=== PATIENT | male | born 1990 | race African-American/Black ===

== ENCOUNTER 2017-01-15 10:50 | Emergency (ER) | payer BC ==
[~2017-01-15] VITALS: Ht 180.3 cm; Wt 71.5 kg
[~2017-01-15 10:50] MED LIST: BACT2CRE TOP
[2017-01-15 10:52] VITALS: BP 132/104; PULSE 74; RESP 16; TEMP 98.8; O2SAT 99
[2017-01-15 11:04] VITALS: BP 155/93; PULSE 63; RESP 18; O2SAT 98
--- NOTE | 2017-01-15 11:25 | PD ---
HPI Chief Complaint: Fever Time Seen by Provider: 11:20 Travel History International Travel<30 days: No Contact w/Intl Traveler<30days: No Traveled to known affect area: No History of Present Illness HPI Patient presents with complaints of fever 2 days. Denies any chest pain shortness of breath urinary or bowel symptoms. Denies any nausea vomiting or diarrhea. Positive sick contacts. No new rashes. History of elevated blood pressure without diagnosis of hypertension. Positive smoker. Took Tylenol 2 hours ago. PFSH Past Medical History Medical History: Denies Significant Hx Diminished Hearing: No Immunizations Current: Yes Tetanus Vaccination: < 5 Years Influenza Vaccination: No Past Surgical History Surgical History: No Previous Surgery Social History Alcohol Use: No Tobacco Use: Yes (4 CIGS DAILY) Substance Use: No Allergies-Medications (Allergen,Severity, Reaction): Coded Allergies: No Known Allergies (Unverified , 01/15/17) Reported Meds & Prescriptions Reported Meds & Active Scripts Active No Active Prescriptions or Reported Medications Review of Systems General / Constitutional: Positive: Fever Eyes: No: Visual changes HENT: No: Headaches Cardiovascular: No: Chest Pain or Discomfort Respiratory: No: Shortness of Breath Gastrointestinal: No: Abdominal Pain Genitourinary: No: Dysuria Musculoskeletal: No: Pain Skin: No Rash Neurologic: No: Weakness Psychiatric: No: Depression Endocrine: No: Polydipsia Hematologic/Lymphatic: No: Easy Bruising Physical Exam Narrative GENERAL: Well-nourished, well-developed patient. SKIN: Focused skin assessment warm/dry. HEAD: Normocephalic. EYES: No scleral icterus. No injection or drainage. NECK: Supple, trachea midline. No JVD or lymphadenopathy. CARDIOVASCULAR: Regular rate and rhythm without murmurs, gallops, or rubs. RESPIRATORY: Breath sounds equal bilaterally. No accessory muscle use. GASTROINTESTINAL: Abdomen soft, non-tender, nondistended. MUSCULOSKELETAL: No cyanosis, or edema. BACK: Nontender without obvious deformity. No CVA tenderness. Data Data Last Documented VS Vital Signs Date Time Temp Pulse Resp B/P Pulse Ox O2 Delivery O2 Flow Rate FiO2 01/15/17 11:04 63 18 155/93 98 Room Air 01/15/17 10:52 98.8 Orders Complete Blood Count With Diff (01/15/17 11:20) Comprehensive Metabolic Panel (01/15/17 11:20) Urinalysis - C+S If Indicated (01/15/17 11:20) Chest, Single Ap (01/15/17 ) Acetaminophen (Tylenol) (01/15/17 11:30) Labs Laboratory Tests Test 01/15/17 11:25 White Blood Count 4.0 TH/MM3 Red Blood Count 5.23 MIL/MM3 Hemoglobin 15.2 GM/DL Hematocrit 46.9 % Mean Corpuscular Volume 89.6 FL Mean Corpuscular Hemoglobin 29.1 PG Mean Corpuscular Hemoglobin 32.4 % Concent Red Cell Distribution Width 12.3 % Platelet Count 127 TH/MM3 Mean Platelet Volume 9.0 FL Neutrophils (%) (Auto) 60.1 % Lymphocytes (%) (Auto) 28.9 % Monocytes (%) (Auto) 10.2 % Eosinophils (%) (Auto) 0.2 % Basophils (%) (Auto) 0.6 % Neutrophils # (Auto) 2.4 TH/MM3 Lymphocytes # (Auto) 1.2 TH/MM3 Monocytes # (Auto) 0.4 TH/MM3 Eosinophils # (Auto) 0.0 TH/MM3 Basophils # (Auto) 0.0 TH/MM3 CBC Comment DIFF FINAL Differential Comment Urine Collection Type CLEAN CATCH Urine Color YELLOW Urine Turbidity CLEAR Urine pH 6.0 Urine Specific [place] 1.028 Urine Protein TRACE mg/dL Urine Glucose (UA) NEG mg/dL Urine Ketones NEG mg/dL Urine Occult Blood NEG Urine Nitrite NEG Urine Bilirubin NEG Urine Leukocyte Esterase NEG Urine RBC 0-3 /hpf Urine Squamous Epithelial 0-5 /hpf Cells Urine Mucus FEW /lpf Microscopic Urinalysis Comment CULT NOT INDICATED Urine Collection Time 11:25 Sodium Level 140 MEQ/L Potassium Level 3.7 MEQ/L Chloride Level 108 MEQ/L Carbon Dioxide Level 23.6 MEQ/L Anion Gap 8 MEQ/L Blood Urea Nitrogen 12 MG/DL Creatinine 1.10 MG/DL Estimat Glomerular Filtration 100 ML/MIN Rate Random Glucose 89 MG/DL Calcium Level 8.8 MG/DL Total Bilirubin 0.3 MG/DL Aspartate Amino Transf 17 U/L (AST/SGOT) Alanine Aminotransferase 18 U/L (ALT/SGPT) Alkaline Phosphatase 41 U/L Total Protein 8.0 GM/DL Albumin 3.9 GM/DL [facility] Medical Decision Making Medical Screen Exam Complete: Yes Emergency Medical Condition: Yes Differential Diagnosis Viral illness, fever unknown origin, respiratory infection, urinary infection Narrative Course Assessment and plan discussed with and daughter at bedside. Chest x-ray showed no acute cardiopulmonary process. Labs reviewed Diagnosis Primary Impression: Fever, unknown origin Patient Instructions: General Instructions Additional Instructions: Encouraged Motrin or Tylenol. Encouraged rest and fluids. Follow-up with PCP if symptoms do not improve. Return to emergency room with any change in symptoms. Med/Other Pt SpecificInfo: No Meds Exist/No RX given Scripts No Active Prescriptions or Reported Meds Disposition: 01 DISCHARGE HOME Condition: Good Andrea Lanza MD Jan 15, 2017 11:24
[2017-01-15] MEDS ORDERED: ACETAMINOPHEN 325 MG TAB PO ONE (11:30)
[2017-01-15 11:37] LABS: AUTOMATED NEUTROPHIL # 2.4 TH/MM3 (1.8-7.7); BASOPHIL % 0.6 % (0.0-2.0); BLOOD, URINE NEG (NEG); EOSINOPHIL % 0.2 % (0.0-4.0); GLUCOSE,URINE NEG (NEG); HEMATOCRIT 46.9 % (39.0-51.0); HEMO FLAGS DIFF FINAL; KETONE, URINE NEG (NEG); LYMPH % 28.9 % (9.0-44.0); LYMPHOCYTE # 1.2 TH/MM3 (1.0-4.8); MEAN CELL VOLUME 89.6 FL (80.0-100.0); MEAN CORPUSCULAR HEMOGLOBIN 29.1 PG (27.0-34.0); MEAN CORPUSCULAR HGB CONC 32.4 % (32.0-36.0); MONO % 10.2 % (0.0-8.0); NEUT % 60.1 % (16.0-70.0); NITRITE,URINE NEG (NEG); PLATELET COUNT 127 TH/MM3 (150-450); RED BLOOD COUNT 5.23 MIL/MM3 (4.50-5.90); RED CELL DISTRIBUTION WIDTH 12.3 % (11.6-17.2)
[2017-01-15 11:41] LABS: METHOD OF COLLECTION CLEAN CATCH; URINE COLOR YELLOW (YELLW/STRAW)
[2017-01-15 11:42] LABS: COMMENT (UR) CULT NOT INDICATED; CULTURE IF INDICATED CULT NOT INDICATED; MUCUS URINE FEW /lpf (OCC); RBC, URINE 0-3 /hpf (0-3); SQUAMOUS EPITHELIAL CELL URINE 0-5 /hpf (0-5)
--- NOTE | 2017-01-15 11:43 | RADRPT ---
EXAM DATE/TIME: 01/15/2017 11:35 [place] COMPARISON: No previous studies available for comparison. INDICATIONS : Fever MEDICAL HISTORY : None. SURGICAL HISTORY : None. ENCOUNTER: Initial ACUITY: 2 days PAIN SCORE: 0/10 LOCATION: Bilateral chest FINDINGS: A single view of the chest demonstrates the lungs to be symmetrically aerated without evidence of mas s, infiltrate or effusion. The cardiomediastinal contours are unremarkable. Osseous structures are intact. CONCLUSION: Normal examination. John Simmons MD on January 15, 2017 at 11:41 Board Certified Radiologist. This report was verified electronically.
[2017-01-15 11:47] LABS: CHLORIDE 108 MEQ/L (98-107); POTASSIUM 3.7 MEQ/L (3.5-5.1); SODIUM (NA) 140 MEQ/L (136-145)
[2017-01-15 11:50] LABS: ANION GAP 8 MEQ/L (5-15); BICARBONATE 23.6 MEQ/L (21.0-32.0)
[2017-01-15 11:51] LABS: BLOOD UREA NITROGEN 12 MG/DL (7-18)
[2017-01-15 11:54] LABS: ALT (GPT) 18 U/L (12-78); AST (GOT) 17 U/L (15-37); GLOMERULAR FILTRATION RATE 100 ML/MIN (>89)
[2017-01-15 11:55] LABS: TOTAL BILIRUBIN ADULT 0.3 MG/DL (0.2-1.0)
[2017-01-15 11:57] LABS: ALKALINE PHOSPHATASE 41 U/L (45-117)
[2017-01-15 12:00] VITALS: BP 155/96; PULSE 84; RESP 18; TEMP 98.1; O2SAT 99
== END 2017-01-15 12:10 | disposition home or self-care (01) ==
LOC: PHED 10:50
DX: R50.9 Fever, unspecified (principal); R03.0 Elevated blood-pressure reading, without diagnosis of hypertension; Z72.0 Tobacco use
CPT/HCPCS: 71010; 80053; 81001; 85025; 99284